=== PATIENT | male | born 1960 | race Caucasian/White ===

== ENCOUNTER 2021-07-20 14:51 | Emergency (ER) | payer BC ==
[2021-07-20] MEDS ORDERED: TORADOL 10 MG T10 MG PO (16:54)
[2021-07-20] MEDS ORDERED: AMOXICILLIN500 M1 PO (16:54)
== END 2021-07-20 18:02 | disposition home or self-care (01) ==
LOC: ER1 14:51
DX: K05.10 Chronic gingivitis, plaque induced (principal); G89.18 Other acute postprocedural pain; K08.89 Other specified disorders of teeth and supporting structures; Z98.818 Other dental procedure status
CPT/HCPCS: 96372; 99282; J1885